=== PATIENT | female | born 1945 | race Caucasian/White ===

== ENCOUNTER 2017-03-11 16:50 | Emergency (ER) | payer MEDICARE ==
--- NOTE | ~2017-03-11 | EKG ---
PATIENT: EVIE OCHOA UNIT #: [id number] Ventricular Rate: 64 BPM Atrial Rate: 64 BPM P-R Interval: 132 ms QRS Duration: 96 ms Q-T Interval: 436 ms QTC Calculation(Bezet): 449 ms P [place]: 71 degrees Calculated R [place]: 73 degrees Calculated T [place]: -7 degrees Diagnosis Line: Normal sinus rhythm Diagnosis Line: Poor R wave progression questionable lead position Diagnosis Line: or body habitus Diagnosis Line: Nonspecific ST and T wave abnormality Diagnosis Line: Abnormal ECG Diagnosis Line: When compared with ECG of 22-JUL-2016 17:04, Diagnosis Line: Questionable change in initial forces of Anterior Diagnosis Line: leads Diagnosis Line: T wave amplitude has increased in Anterior leads Diagnosis Line: Confirmed by PHILIP SEGURA MD ([id number]) on Diagnosis Line: 03/12/2017 6:50:34 AM INTERPRETING MD: ISRA
--- NOTE | ~2017-03-11 | CR72 ---
[facility] A Service of [facility] & [facility] RADIOLOGY TEXT RESULTS PATIENT: EVIE OCHOA LOCATION: [facility] : 47 UNIT #: [id number] AGE: [address]: Michele Gotti MD SEX: F ORDER DR: [id number] [facility] [address] [place], [place] [address] [id number] E MR#: [id number] Acc #: [id number] NAME: EVIE OCHOA : 1945 SEX: F STUDY DATE/TIME: 03/11/2017 16:15 UNIT: [facility] ROOM: STUDY DESCRIPTION: CR Chest Single View Portable Attending Physician: Michele Gotti M.D. Ordering Physician: Michele Gotti M.D. MEDICAL IMAGING REPORT This report is preliminary unless electronic signature is present EXAM Portable chest INDICATIONS Minus dizziness, tightness in chest today. COMPARISON STUDIES 12/31/2016. FINDINGS There is stable scarring in the lung apices. No acute-appearing infiltrate. Heart size stable. IMPRESSION No active disease. Dictated by... Shaun Brink M.D. THIS IS AN ELECTRONICALLY VERIFIED REPORT Shaun Brink M.D. at 03/12/2017 9:37 AM ARS/pcl TD: 03/11/2017 18:34 JOB #: [id number] MEDICAL IMAGING REPORT Page 1 of 1 COPY
--- NOTE | ~2017-03-11 | CT2 ---
[facility] A Service of [facility] RADIOLOGY TEXT RESULTS PATIENT: EVIE OCHOA LOCATION: [facility] : 47 UNIT #: [id number] AGE: [address]: Michele Gotti MD SEX: F ORDER DR: [id number] [facility] [address] [place], [place] [address] [id number] E MR#: [id number] Acc #: [id number] NAME: EVIE OCHOA. : 1945 SEX: F STUDY DATE/TIME: 03/11/2017 17:40 UNIT: [facility] ROOM: STUDY DESCRIPTION: CT Abd and Pelv W Cont Attending Physician: Michele Gotti M.D. Ordering Physician: Michele Gotti M.D. MEDICAL IMAGING REPORT This report is preliminary unless electronic signature is present EXAM Abdomen and pelvis CT with contrast HISTORY Vomiting, nausea with diarrhea and cramping for the past 2 days. TECHNIQUE Axial images were obtained with intravenous contrast. 100 cc of Isovue was used. This CT exam was performed with one or more of the following radiation dose reduction techniques: automatic exposure control, adjustment of mA and/or kV according to patient size, and iterative reconstruction. COMPARISON STUDIES Previous CT 09/08/2016. FINDINGS Mild fibrotic changes are again seen at both lung bases, unchanged from the previous exam. In the abdomen, no upper abdominal solid organ abnormalities are seen. There is no evidence of retroperitoneal adenopathy or ascites. The colon is moderately distended with air-fluid levels but no mucosal thickening is seen. There is no evidence of ascites. No acute or inflammatory changes are noted. IMPRESSION Moderately distended colon with scattered air-fluid levels consistent with an adynamic ileus. No evidence of mucosal thickening in the colon. Otherwise, negative abdomen and pelvis CT. [facility] A Service [facility] RADIOLOGY TEXT RESULTS PATIENT: EVIE OCHOA LOCATION: [facility] : 47 UNIT #: [id number] AGE: [address]: Michele Gotti MD SEX: F ORDER DR: Dictated by... Omar Dan M.D. THIS IS AN ELECTRONICALLY VERIFIED REPORT Omar Dan M.D. at 03/15/2017 7:15 AM RLF/pcl TD: 03/11/2017 20:38 JOB #: [id number] MEDICAL IMAGING REPORT Page 1 of 1 COPY
[2017-03-11 16:09] LABS: URINE SOURCE CLEAN CATCH
[2017-03-11 16:25] LABS: BASOPHIL% 0.5 % (0-2.5); EOSINOPHIL% 0.6 % (0.0-7.0); HEMATOCRIT 37.6 % (35.0-45.0); HEMOGLOBIN 12.4 gm/dL (12.0-16.0); LYMPHOCYTE# 1.3 X10e3 (1.0-3.5); LYMPHOCYTE% 18.2 % (17.0-45.0); MEAN CELL VOLUME 103.4 FL (83-96); MEAN CORPUSCULAR HEMOGLOBIN 34.1 PG (28-34); MEAN PLATELET VOLUME 8.1 FL (6.5-11.5); MONOCYTE# 0.4 X10e3 (0-1.0); MONOCYTE% 6.1 % (3.0-12.0); NEUTROPHIL# 5.4 X10e3 (1.5-7.1); NEUTROPHIL% 74.6 % (40-75); PLATELET COUNT 328 X10e3 (140-420); RED BLOOD COUNT 3.64 X10e (3.90-5.30); RED CELL DISTRIBUTION WIDTH 14.6 % (11.0-15.5); WHITE BLOOD COUNT 7.3 X10e3 (4.0-10.5)
[2017-03-11 16:26] LABS: DIFF IND NO
[2017-03-11 16:28] LABS: URINE APPEARANCE CLEAR; URINE BILIRUBIN NEG (NEG); URINE BLOOD TRACE (NEG); URINE COLOR YELLOW; URINE GLUCOSE NEG (NEG); URINE KETONE TRACE (NEG); URINE LEUKOCYTE ESTERASE 1+ (NEG); URINE NITRATE NEG (NEG); URINE PROTEIN NEG (NEG); URINE SPECIFIC GRAVITY 1.024 (1.003-1.035); URINE UROBILINOGEN 0.2 MG/DL (NEG)
[2017-03-11 16:31] LABS: POC - TROPONIN <0.05 ng/mL (<=0.05)
[2017-03-11 16:34] LABS: CULTURE INDICATED? NO
[2017-03-11 16:49] LABS: ALBUMIN SERUM 4.6 g/dL (3.5-5.0); BILIRUBIN, DIRECT 0.3 mg/dL (0.0-0.2); BILIRUBIN,INDIRECT 0.8 mg/dL (0.0-0.9); BILIRUBIN,TOTAL 1.1 mg/dL (0.2-2.0); BUN/CREATININE RATIO 22.22; CALCIUM SERUM 9.4 mg/dL (8.4-10.2); CREATININE SERUM 0.9 mg/dL (0.6-1.4); GLOM FILT RATE Estimated 64.4 mL/min (>60); POTASSIUM 4.7 mmol/L (3.5-5.1); PROTEIN TOTAL SERUM 7.8 g/dL (6.0-8.3)
[~2017-03-11 16:50] MED LIST: ARTHRITIS PAIN650 M2 PO; ARTIFICIAL TEAR1 DRP OU; ARTIFICIAL TEAR15 M3 OU; ASPIRIN EC81 M1 PO; ASPIRIN PO; ASPIRIN81 M2 PO; CALCIUM 600 +1 EAC6 PO; CARAFATE1 G PO; CIPROFLOXACIN500 M1 PO; COUMADIN PO; CYANOCOBAL1000 MCG/M; CYANOCOBALAM1000 MCG PO; DIAZEPAM2 MG PO; DOCUSATE SODIU100 MG PO; ESOMEPRAZOLE SO20 MG PO; FERROUS GLUCON324 MG PO; FIBER0.52 G PO; FIBERCON625 MG PO; FLONASE 0.05% N16 G1; FLOVENT DI50 MCG/DIS IH; FOLIC ACID1 MG PO; IBUPROFEN800 MG PO; LEVAQUIN PO; LORTAB 5/500 TA1 TA1 PO; METAMUCIL PACKE1 PK1 PO; METHOTREXATE2.5 MG PO; NEURONTIN100 MG PO; NORCO 10-325 TA1 TAB PO; NORCO 10/3251 TAB PO; NORCO1 TAB 10/3 PO; PANTOPRAZOLE SO40 MG PO; PLAQUENIL200 MG PO; PREDNISONE5 M1 PO; PRO-AMATINE5 M1 PO; PRO-AMATINE5 MG PO; PROLIA60 MG/1 ML SQ; PROTONIX PO; RESTASIS32 EA OU; TOPROL XL PO; TRAMADOL HCL50 M1 PO; VICODIN 5/500 T1 TAB PO; VITAMIN D-32000 UNI1 PO; ZOFRAN PO
[2017-03-11 18:42] LABS: POC - CKMB 1.8 ng/mL (0.0-7.9); POC - TROPONIN <0.05 ng/mL (<=0.05)
== END 2017-03-11 19:00 | disposition home or self-care (01) ==
LOC: CED 16:50
PROVIDERS: Emergency Medicine
DX: R19.7 Diarrhea, unspecified (principal); R42 Dizziness and giddiness; Z90.49 Acquired absence of other specified parts of digestive tract; Z88.0 Allergy status to penicillin; Z88.2 Allergy status to sulfonamides; Z91.040 Latex allergy status; Z88.8 Allergy status to other drugs, medicaments and biological substances
CPT/HCPCS: 27767; 71010; 74177; 80048; 80076; 81003; 82553; 82947; 83690; 84484; 85025; 93005; 96360; 96372; 99284; J0500; Q9967

== ENCOUNTER 2017-04-01 12:23 | Emergency (ER) | payer MEDICARE ==
--- NOTE | ~2017-04-01 | CR150 ---
[facility] A Service of [facility] & [facility] RADIOLOGY TEXT RESULTS PATIENT: EVIE OCHOA LOCATION: [facility] : 47 UNIT #: [id number] AGE: [address]: Troy Urena MD SEX: F ORDER DR: [id number] [facility] [address] [place], [place] [address] [id number] E MR#: [id number] Acc #: [id number] NAME: EVIE OCHOA : 1945 SEX: F STUDY DATE/TIME: 04/01/2017 1323 UNIT: [facility] ROOM: STUDY DESCRIPTION: CR Hip Min 2 Views Lt Attending Physician: Troy Urena M.D. Ordering Physician: Troy Urena M.D. Primary Care Physician: Jones Rabago Sr., M.D. MEDICAL IMAGING REPORT This report is preliminary unless electronic signature is present EXAM Left hip 04/01/2017 13:23 hours CLINICAL HISTORY 72-year-old woman who fell today while at Hospital. Left hip pain since fall. COMPARISON CT abdomen and pelvis 03/11/2017 FINDINGS AP pelvis and frog lateral view left hip demonstrate osteopenia. There is postop change right hip replacement, unchanged. There is mild to moderate degenerative spurring at the left hip. There is no definite left hip fracture. Pubic rami are intact. IMPRESSION Mild osteopenia with stable appearance to right hip replacement. There is no definite left hip fracture. No pelvic fracture seen. Dictated by... Megan Marie M.D. THIS IS AN ELECTRONICALLY VERIFIED REPORT Megan Marie M.D. at 04/04/2017 9:01 AM OPHELIA/wilma TD: 04/01/2017 16:41 JOB #: [id number] MEDICAL IMAGING REPORT Page 1 of 1 COPY
== END 2017-04-01 14:05 | disposition home or self-care (01) ==
LOC: CED 12:23
DX: S70.02XA Contusion of left hip, initial encounter (principal); W01.0XXA Fall on same level from slipping, tripping and stumbling without subsequent striking against object, initial encounter
CPT/HCPCS: 71020; 73502; 99283

== ENCOUNTER 2017-04-10 17:49 | Emergency (ER) | payer MEDICARE ==
--- NOTE | ~2017-04-10 | CR63 ---
[facility] A Service of [facility] & [facility] RADIOLOGY TEXT RESULTS PATIENT: EVIE OCHOA LOCATION: [facility] : 47 UNIT #: [id number] AGE: [address]: Troy Urena MD SEX: F ORDER DR: [id number] [facility] [address] [place], [place] [address] [id number] E MR#: [id number] Acc #: [id number] NAME: EVIE OCHOA : 1945 SEX: F STUDY DATE/TIME: 04/10/2017 19:41 UNIT: [facility] ROOM: STUDY DESCRIPTION: CR Chest 2 View Attending Physician: Troy Urena M.D. Ordering Physician: Troy Urena M.D. Primary Care Physician: Jones Rabago Sr., M.D. MEDICAL IMAGING REPORT This report is preliminary unless electronic signature is present EXAM PA and lateral chest HISTORY Cough and congestion and right side chest pain for 2 weeks. FINDINGS 2 views of the chest demonstrate mild cardiac enlargement. Normal pulmonary vascularity. Mild left lower thoracic curve. No infiltrates or effusions. IMPRESSION No acute findings. Mild cardiac enlargement. Dictated by... Cain Gibson M.D. THIS IS AN ELECTRONICALLY VERIFIED REPORT Cain Gibson M.D. at 04/10/2017 10:26 PM KAREN/tej TD: 04/10/2017 22:14 JOB #: [id number] MEDICAL IMAGING REPORT Page 1 of 1 COPY
== END 2017-04-10 21:20 | disposition home or self-care (01) ==
LOC: CED 17:49
DX: R07.89 Other chest pain (principal); M06.9 Rheumatoid arthritis, unspecified; Z90.49 Acquired absence of other specified parts of digestive tract; Z98.890 Other specified postprocedural states; Z88.0 Allergy status to penicillin; Z88.8 Allergy status to other drugs, medicaments and biological substances; Z91.040 Latex allergy status; Z79.899 Other long term (current) drug therapy
CPT/HCPCS: 71020; 99284